=== PATIENT | female | born 1950 | race African-American/Black ===

== ENCOUNTER 2017-05-16 17:04 | Emergency (ER) | payer OTHER, BC ==
[~2017-05-16] VITALS: Ht 165.1 cm; Wt 49.9 kg
[2017-05-16 17:12] VITALS: BP 103/72
[2017-05-16] MEDS ORDERED: Sodium Chloride 500ML 500 ML IV ONE (17:39)
[2017-05-16 18:45] VITALS: BP 124/70
[2017-05-16] MEDS ORDERED: Piperacillin/Tazobactam 3.375 GM in NS 110 ML IVPB ONE (19:15)
[2017-05-16] MEDS ORDERED: Azithromycin 500 MG in NS 275 ML IV ONE (19:15)
[2017-05-16 19:29] VITALS: BP 124/70
[2017-05-16 19:33] LABS: MEAN CORPUSCULAR HEMOGLOBIN 34.9 PG (27.0-31.0); MEAN CORPUSCULAR HGB CONC 29.2 G/DL (32.0-36.0); MEAN CORPUSCULAR VOLUME 120 FL (80-99); MEAN PLATELET VOLUME 11.9 FL (6.5-10.1); RED CELL DISTRIBUTION WIDTH 21.2 % (11.6-14.8); WHITE BLOOD COUNT 11.9 K/UL (4.8-10.8)
[2017-05-16 19:39] LABS: PLATELET COUNT 8 K/UL (150-450)
[2017-05-16 20:08] LABS: ALANINE AMINOTRANSFERASE > 1000 U/L (12-78); ANION GAP 19 (5-15); ASPARTATE AMINO TRANSFERASE 646 U/L (15-37); CALCIUM 8.5 MG/DL (8.5-10.1); CARBON DIOXIDE 14 MMOL/L (21-32); CHLORIDE 101 MMOL/L (98-107); CREATININE 1.7 MG/DL (0.55-1.30); GLOMERULAR FILTRATION RATE 36.4 mL/min (>60); SODIUM 133 MMOL/L (136-145); TOTAL PROTEIN 5.3 G/DL (6.4-8.2)
[2017-05-16 20:53] LABS: BAND NEUTROPHILS % (MANUAL) 3 % (0-8); BASOPHILS % (MANUAL) 0 % (0-2); EOSINOPHILS % (MANUAL) 0 % (0-3); LYMPHOCYTES % (MANUAL) 41 % (20-45); NEUTROPHILS % (MANUAL) 46 % (45-75); NUCLEATED RED BLOOD CELLS 45 /100 WBC; PLATELET ESTIMATE DECREASED; TOTAL CELLS COUNTED 100
[2017-05-16 20:54] LABS: ANISOCYTOSIS 3+; POIKILOCYTOSIS 2+; POLYCHROMASIA 1+
[2017-05-16 20:55] LABS: HYPOCHROMASIA 1+; MACROCYTES 3+; PLATELET MORPHOLOGY NORMAL
[2017-05-16 20:58] LABS: BILIRUBIN,DIRECT 1.9 MG/DL (0.0-0.3)
--- NOTE | 2017-05-16 23:30 | Emergency Room Report ---
History of Present Illness General Chief Complaint: Dyspnea/Respdistress Source: Medical Record, EMS Present Illness HPI 66-year-old female presents ED for evaluation. Patient comes from longterm with shortness of breath x1 day. Patient is on oxygen at the longterm. Patient has history of pulmonary hypertension. Patient states she is having a hard time breathing, trouble speaking. Denies fevers or chills. Denies chest pain shortness of breath. No other aggravating relieving factors. Denies any other associated symptoms Allergies: Coded Allergies: HALOPERIDOL (Verified Allergy, Unknown, 05/16/17) VANCOMYCIN (Verified Allergy, Unknown, 05/16/17) Patient History Past Medical History: CHF, other - pulmonary hypertension Past Surgical History: none Pertinent Family History: none Social History: Denies: smoking, alcohol use, drug use Now: No Immunizations: UTD Reviewed Nursing Documentation: PMH: Agreed, PSxH: Agreed Nursing Documentation-PMH Hx Cardiac Problems: Yes - pulmonary hypertension, weakness, chf Hx Cancer: Yes - lymphoma Review of Systems All Other Systems: negative except mentioned in HPI Physical Exam Vital Signs Date Time Temp Pulse Resp B/P (MAP) Pulse Ox O2 Delivery O2 Flow Rate FiO2 05/16/17 17:00 98.6 78 16 103/72 92 Nasal Cannula 2.0 05/16/17 19:03 100 Sp02 EP Interpretation: reviewed, abnormal General Appearance: alert, mild distress, cachetic Head: normocephalic ENT: normal ENT inspection Neck: normal inspection Respiratory: decreased breath sounds Cardiovascular #1: regular rate, rhythm, no edema Gastrointestinal: normal inspection Rectal: deferred Genitourinary: no CVA tenderness Musculoskeletal: normal inspection Neurologic: alert, oriented x3, responsive, motor strength/tone normal, sensory intact, speech normal Psychiatric: normal inspection Skin: normal inspection Lymphatic: normal inspection Procedures Critical Care Time Critical Care Time i. I feel this is a highly complex case requiring extensive working including EKG/Rhythm strip, Xray/CT/US, Blood/urine lab work, repeat exams while in ED, and administration of strong opiates/narcotics for pain control, admission to hospital or close patient follow up. Total time: 30 min bedside evaluation and treatment excludes procedures (EKG). Reason for critical care: Hypoxic, apneic breathing. Cardiac arrest Possible complications: hypotension, hypertension, NV, shock, arrhythmias, metabolic acidosis, end organ damage, respiratory failure. Interventions: Intubation. CPR. ACLS. Central line. levophed. IV fluids. Course: Patient brought in for shortness of breath. History of pulmonary hypertension. Patient placed on oxygen. Respiratory therapist attempting ABG when patient became apneic and unresponsive. Patient immediately intubated. Shortly after intubation patient lost her pulses. In asystole. Chest compressions started. ACLS medications given. Right femoral central line placed. Despite medications given including Levophed, patient did not regain pulses. Resuscitative efforts terminated. Patient expires Consultations: nursing staff, EMS, family Performed by: Dr Powers Tolerated well condition = j. because of unstable vital signs this patient had a condition that could potentially threaten life or limb. I feel this is a critical patient who required my full attention while patient was considered critical. Total Critical Care Time excluding procedures was greater than 35 minutes Central Line Central Line : Consent: Emergent Central Line Lumen: triple Maximal Sterile Barrier Tech: yes cap, yes mask, yes sterile gown, yes sterile gloves, yes large sterile sheet, yes hand hygiene, yes chlorhexidine prep Central Line Postion: femoral (R) Complications: none Central Line Post Position: sutured Attempts: One Patient Tolerated: Well Complications: None CPR/Code Blue CPR/Code Blue Narrative see code blue sheet for narrative Intubation Intubation : Consent: Emergent Intubation Method: orotracheal Tube Size (cm): 7.5 Breath Sounds after Intubation: equal Intubation Complications: no complications Post Intubation Xray: Yes Attempts: One Patient Tolerated: Well Complications: None Medical Decision Making Diagnostic Impression: Primary Impression: Respiratory distress Additional Impression: Cardiac arrest ER Course 66-year-old female presents ED with shortness of breath. History of pulmonary hypertension Differential-pneumothorax, COPD, pneumonia Patient placed on stretcher. After initial history and physical I ordered labs , EKG, chest x-ray, ABG While respiratory therapist attempted ABG patient became apneic and unresponsive. Patient immediately intubated. While patient was being connected to the ventilator patient lost her pulses. In asystole. Chest compressions started. ACLS started. Medications given. Placed a right femoral central line. IV fluids given. Calcium, bicarbonate, multiple rounds of epinephrine Patient had transient moments of pulses but likely due to epinephrine as patient quickly went into asystole again Levophed started. Despite resuscitative efforts patient remains in asystole. Prognosis is poor. Resuscitative efforts terminated. Patient expires Case discussed with the family. I contacted PMD and informed him of patient's expiration. Diagnoses-respiratory distress, cardiac arrest Patient expires Labs Test 05/16/17 18:55 White Blood Count 11.9 K/UL (4.8-10.8) Red Blood Count 2.80 M/UL (4.20-5.40) Hemoglobin 9.8 G/DL (12.0-16.0) Hematocrit 33.4 % (37.0-47.0) Mean Corpuscular Volume 120 FL (80-99) Mean Corpuscular Hemoglobin 34.9 PG (27.0-31.0) Mean Corpuscular Hemoglobin Concent 29.2 G/DL (32.0-36.0) Red Cell Distribution Width 21.2 % (11.6-14.8) Platelet Count 8 K/UL (150-450) Mean Platelet Volume 11.9 FL (6.5-10.1) Neutrophils (%) (Auto) % (45.0-75.0) Lymphocytes (%) (Auto) % (20.0-45.0) Monocytes (%) (Auto) % (1.0-10.0) Eosinophils (%) (Auto) % (0.0-3.0) Basophils (%) (Auto) % (0.0-2.0) Differential Total Cells Counted 100 Neutrophils % (Manual) 46 % (45-75) Lymphocytes % (Manual) 41 % (20-45) Monocytes % (Manual) 10 % (1-10) Eosinophils % (Manual) 0 % (0-3) Basophils % (Manual) 0 % (0-2) Band Neutrophils 3 % (0-8) Nucleated Red Blood Cells 45 /100 WBC Platelet Estimate Decreased Platelet Morphology Normal Polychromasia 1+ Hypochromasia 1+ Poikilocytosis 2+ Anisocytosis 3+ Macrocytosis 3+ Sodium Level 133 MMOL/L (136-145) Potassium Level 6.0 MMOL/L (3.5-5.1) Chloride Level 101 MMOL/L (98-107) Carbon Dioxide Level 14 MMOL/L (21-32) Anion Gap 19 (5-15) Blood Urea Nitrogen 41 mg/dL (7-18) Creatinine 1.7 MG/DL (0.55-1.30) Estimat Glomerular Filtration Rate 36.4 mL/min (>60) Glucose Level 77 MG/DL (74-106) Calcium Level 8.5 MG/DL (8.5-10.1) Total Bilirubin 4.2 MG/DL (0.2-1.0) Direct Bilirubin 1.9 MG/DL (0.0-0.3) Aspartate Amino Transf (AST/SGOT) 646 U/L (15-37) Alanine Aminotransferase (ALT/SGPT) > 1000 U/L (12-78) Alkaline Phosphatase 401 U/L (46-116) Total Creatine Kinase 76 U/L (26-308) Creatine Kinase MB 4.0 NG/ML (0.0-3.6) Creatine Kinase MB Relative Index 5.2 Troponin I 0.037 ng/mL (0.000-0.056) Pro-B-Type Natriuretic Peptide 9712 (0-125) Total Protein 5.3 G/DL (6.4-8.2) Albumin 2.6 G/DL (3.4-5.0) Globulin 2.7 g/dL Albumin/Globulin Ratio 1.0 (1.0-2.7) EKG Diagnostic Results Rate: tachycardiac Rhythm: NSR ST Segments: no acute changes ASA given to the pt in ED: No Rhythm Strip Diag. Results EP Interpretation: yes Rhythm: NSR, no PVC's, no ectopy Chest X-Ray Diagnostic Results Chest X-Ray Diagnostic Results : Chest X-Ray Ordered: Yes # of Views/Limited/Complete: 1 View Indication: Shortness of Breath EP Interpretation: Yes Interpretation: no consolidation, no effusion, no pneumothorax, no acute cardiopulmonary disease, other - ET tube in place Impression: Other - intubated Electronically Signed by: Electronically signed by Jerrell Powers MD Last Vital Signs Date Time Temp Pulse Resp B/P (MAP) Pulse Ox O2 Delivery O2 Flow Rate FiO2 05/16/17 19:29 98.6 119 14 124/70 99 Nasal Cannula 5.0 100 Status: worsened Disposition: Condition: Referrals: NON PHYSICIAN (PCP) JERRELL POWERS M.D. May 16, 2017 23:30
--- NOTE | 2017-05-17 10:59 | Diagnostic Imaging Report ---
Indication: SOB Technique: One view of the chest Comparison: none Findings: There is an endotracheal tube in place, endotracheal tube tip approximately 4 cm above the kobi. Transcutaneous pacemaker paddles are seen projected over the left lower chest and upper abdomen. The lungs and pleural spaces are clear. The heart size is normal. Impression: Satisfactory endotracheal intubation No acute cardiopulmonary process
--- NOTE | 2017-05-27 15:46 | Cardiology Report ---
APPROVED REPORT EKG Measurement Heart [id number] Sinus tachycardia with fusion complexes Possible Right ventricular hypertrophy Possible Lateral infarct, age undetermined Inferior infarct, age undetermined Abnormal ECG
== END 2017-05-16 19:29 | disposition expired ==
LOC: EDBD 17:04 → EMR 18:20
DX: R06.03 Acute respiratory distress (principal); I46.9 Cardiac arrest, cause unspecified; C85.90 Non-Hodgkin lymphoma, unspecified, unspecified site; I27.20 Pulmonary hypertension, unspecified; I50.9 Heart failure, unspecified; Z88.1 Allergy status to other antibiotic agents; Z99.81 Dependence on supplemental oxygen
CPT/HCPCS: 31500; 36415; 71010; 80053; 81003; 82248; 82550; 82553; 83880; 84484; 85007; 85025; 92950; 93005; 94002; 96374; 96375